=== PATIENT | female | born 2000 | race Caucasian/White ===

== ENCOUNTER 2022-07-05 18:03 | Emergency (ER) | payer OTHER, SELFPAY ==
--- NOTE | ~2022-07-05 | XR_ITS ---
EXAMINATION: XR lumbar spine 2-3V DATE: 07/05/2022 18:30 INDICATION: Low back pain radiating down both legs. TECHNIQUE: 3 views of lumbar spine were obtained. COMPARISON: None. FINDINGS: There is 3 degrees dextrocurvature of lumbar spine. Vertebral body heights and intervertebr al disc heights are normal. There is an osteophyte of superior endplate of L4. The facet joints are u nremarkable. IMPRESSION: 1. Mild lumbar spondylosis. Reviewed, dictated and finalized at location A. [employer] IMPRESSION: 1. Mild lumbar spondylosis.
--- NOTE | 2022-07-05 18:22 | ED.BACK ---
HPI - Back Pain/Injury General Chief Complaint: Back Pain/Injury Stated Complaint: lower back injury Time Seen by Provider: 07/05/22 18:16 Source: patient, RN notes reviewed and old records reviewed Mode of arrival: ambulatory Limitations: no limitations History of Present Illness HPI Narrative: 21 year old female presents to [facility] with complaints low back pain which does radiate down the posterior aspect both buttocks today to the posterior aspect of her upper thighs with some tingling voiced. Patient denies any difficulty with passing her urine or any difficulty with passing stools, denies any saddle paraesthesia. Patient reports that she has been having back problems since around 2015 with no known injury known. Patient states that she has been taking Tylenol and using her heating pad for her discomfort. MD elicited complaint: back pain Pertinent past history: other (back pain since 2016 increased symptoms past 3-4 months) Onset (ago): day(s) (increase pain past 3 days) Pain scale (0-10): 5 Treatments prior to arrival: other (Tylenol and heating pad) Related Data Home Medications Medication Instructions Recorded Confirmed dextroamphetamine-amphetamine 5 mg 5 mg PO DAILY 09/13/20 07/05/22 tablet (Adderall) dextroamphetamine-amphetamine ER 30 mg PO DAILY 09/13/20 07/05/22 30 mg 24hr capsule,extend release (Adderall XR) sertraline 100 mg tablet (Zoloft) 125 mg PO DAILY 11/08/21 07/05/22 Allergies Allergy/AdvReac Type Severity Reaction Status Date / Time No Known Allergies Allergy Verified 07/05/22 18:13 Review of Systems Review of Systems: CONSTITUTIONAL: Denies fever, chills, or sweats. CARDIOVASCULAR: Denies chest pain, palpitations, or edema. RESPIRATORY: Denies cough or dyspnea. GASTROINTESTINAL: Denies abdominal pain, nausea, vomiting, or diarrhea. GENITOURINARY: Denies dysuria or hematuria. SKIN: Denies rash or itching. MUSCULOSKELETAL: Reports today her lumbar back pain is across lower back with some radiation down buttocks to posterior upper thighs with some tingling.no other stated joint pain, Joint pain or myalgia. NEUROLOGIC: Denies headache, or weakness. All systems reviewed & are unremarkable except as noted in HPI and below PMFSH Past Medical History Medical History (Updated 07/05/22 @ 19:30 by Katy Jiménez NP) ADHD (attention deficit hyperactivity disorder) Anemia Anxiety Asthma History of frequent headaches Surgical History Surgical History History of appendectomy Family History Family History Mother Asthma Depression Father Hypertension Social History Social History Smoking status: Never smoker Tobacco type: e-cigarettes/vaping Alcohol intake: current Substance use: never Gender identity (if verbalized by the patient): Female Agree to blood products: Yes Comments At time of signature, agree with nursing past medical, surgical, social and family history. There is no relevant family history pertinent to the presenting complaint Exam Narrative: GENERAL: Well-appearing, well-nourished, and in no acute distress. HEAD: Normocephalic, atraumatic. EYES: PERRLA and EOMI. NECK: Supple. No lymphadenopathy. CHEST: Clear to auscultation. No respiratory distress. HEART: Regular rate and rhythm. Distal pulses palpable and equal, cap refill <3 seconds ABDOMEN: Soft, nontender, nondistended, normal active bowel sounds, no palpable or pulsatile masses. No CVA tenderness MUSCULOSKELETAL: Normal range of motion and strength in all extremities; 5/5 strength with hip flexion and extension, dorsiflexion and extension, knee flexion and extension, plantar flexion and extension. Normal sensation in dermatomal distributions with sensitivity to light touch and pain. No midline back tenderness
[2022-07-05 18:44] VITALS: BP 138/95; PULSE 83; RESP 16; TEMP 37.1; O2SAT 100
== END 2022-07-05 18:51 | disposition home or self-care (01) ==
PROVIDERS: Emergency Provider Registered Nurse
DX: M54.50 Low back pain, unspecified (principal); M79.652 Pain in left thigh; M79.651 Pain in right thigh; F90.9 Attention-deficit hyperactivity disorder, unspecified type; F41.9 Anxiety disorder, unspecified; J45.909 Unspecified asthma, uncomplicated
CPT/HCPCS: 72100; 99213; G0463

== ENCOUNTER 2023-08-05 18:28 | Emergency (ER) | payer OTHER, SELFPAY ==
[2023-08-05 18:37] VITALS: BP 145/95; PULSE 106; RESP 18; TEMP 36.9; O2SAT 100
[2023-08-05 19:42] VITALS: BP 112/77; PULSE 109; RESP 24; O2SAT 100
--- NOTE | 2023-08-05 21:02 | PC.NURSE ---
pt denies loss of bowel or bladder at this time.
[2023-08-06] MEDS: ACETAMINOPHEN 500 MG TABLET 1000 MG PO (00:06)
[2023-08-06] MEDS: KETOROLAC 15 MG/ML VIAL (*BKC) IV PUSH (00:07)
[2023-08-06] MEDS: methocarbamoL 750 MG TABLET 1500 MG PO (00:07)
--- NOTE | 2023-08-06 00:58 | ED.GENADULT ---
HPI - General Adult General Chief complaint: Back Pain/Injury Stated complaint: back pain Time Seen by Provider: 08/05/23 22:09 History of Present Illness HPI narrative: This is a 22-year-old female presenting with back pain. Patient says that she has midthoracic back pain that wraps around the right side of her chest and radiates into her chest. She says that is debilitating. She says she is unable to stand up straight. She says it is too painful for her walk. She notes the pain started when she was lifting a box about 1 week ago. Patient was seen at an outside urgent care and she was sent to the ER for further evaluation. Patient denies any Urinary retention, bowel incontinence or lower extremity weakness. No trauma fevers IV drug abuse or cancer Related Data Home Medications Medication Instructions Recorded Confirmed dextroamphetamine-amphetamine 5 mg 10 mg PO DAILY 05/07/23 tablet (Adderall) dextroamphetamine-amphetamine ER 25 mg PO DAILY 05/07/23 30 mg 24hr capsule,extend release (Adderall XR) sertraline 100 mg tablet (Zoloft) 200 mg PO DAILY 05/07/23 trazodone 50 mg tablet 50 mg PO QHS PRN 05/07/23 Allergies Allergy/AdvReac Type Severity Reaction Status Date / Time No Known Allergies Allergy Verified 05/07/23 14:36 PMFSH Past Medical History Medical History ADHD (attention deficit hyperactivity disorder) Anemia Anxiety Asthma History of frequent headaches Surgical History Surgical History History of appendectomy Family History Family History Mother Asthma Depression Father Hypertension Social History Social History Smoking status: Current every day smoker Tobacco type: e-cigarettes/vaping Alcohol intake: current Substance use: never Lack of Transportation: No Lack of Food: Never True Current Housing: I Have Housing Concerned About Future Housing: No Difficulty Paying Gas/Electric Bills: Decline to Answer Difficulty Paying for Meds: YES Currently Unemployed: No Education: High School Diploma/GED Difficulty w/ Childcare or Family Care: No Living arrangements: with roommate(s) Occupation/Education: student Gender identity (if verbalized by the patient): Female Agree to blood products: Yes Exam Narrative: APPEARANCE: No apparent distress. Head: atraumatic. EYES: EOMI, NOSE: Atraumatic NECK: Trachea midline RESPIRATORY: No increased rate of breathing, CTAB CARDIOVASCULAR: RRR, ABDOMINAL: Non-distended, soft nontender MUSCULOSKELETAl: tenderness to palpation over the right thoracic muscles NEURO: Alert. Moving 4/4 extremities SKIN:: Warm, dry. Normal color PSYCHIATRIC: Normal affect Course Vital Signs Vital signs: Vital Signs Temperature 98.4 F 08/05/23 18:37 Pulse Rate 106 H 08/05/23 18:37 Respiratory Rate 18 08/05/23 18:37 Blood Pressure 145/95 H 08/05/23 18:37 Pulse Oximetry 100 08/05/23 18:37 Oxygen Delivery Room Air 08/05/23 18:37 Temperature 98.4 F 08/05/23 18:37 Pulse Rate 85 08/06/23 01:44 Respiratory Rate 17 08/06/23 01:44 Blood Pressure 143/97 H 08/06/23 01:44 Pulse Oximetry 100 08/06/23 01:44 Oxygen Delivery Room Air 08/05/23 18:37 Medical Decision Making MDM Narrative Medical decision making narrative: -Course: 22-year-old female presenting with thoracic back pain wrapping around her body into her chest. Patient was treated conservatively with NSAIDs and muscle relaxers. On re-evaluation she says she is still in too much pain to stand or walk. She says she was sent here from the urgent care to get imaging. I discussed the dangers of radiation to a young female and the patient still requested imaging. CTA chest abdomen pelvis has been ordered.
[2023-08-06] MEDS: LIDOCAINE 5% PATCH 1 PATCH TRANSDERM (01:10)
[2023-08-06] MEDS: diazePAM INJ (*CRX) 10 MG/2 ML SYRINGE IM (01:10)
[2023-08-06] MEDS: SODIUM CHLORIDE 0.9% IV 2,000 ML 999 ML IV CONT (01:25)
[2023-08-06 01:36] LABS: Basophils Percent Auto 0.4 % (0.2-1.2); Eosinophils Absolute Auto 0.1 K/mm3 (0-0.3); Eosinophils Percent Auto 0.9 % (0-4.4); Hematocrit 35.8 % (37.0-47.0); Hemoglobin 10.8 g/dL (12.0-15.0); Immature Granulocyte Absolute 0.02 K/mm3 (0.00-0.031); Immature Granulocyte Percent A 0.2 % (0-0.5); Lymphocytes Absolute Auto 2.94 K/mm3 (0.9-3.2); Lymphocytes Percent Auto 31.6 % (18.3-44.2); Mean Corpuscular HGB Conc 30.2 g/dl (32-36); Mean Corpuscular Hemoglobin 23.5 pg (26-34); Monocytes Absolute Auto 0.6 K/mm3 (0.1-0.6); Monocytes Percent Auto 6.4 % (2.6-8.5); Neutrophils Absolute Auto 5.6 K/mm3 (1.3-6.7); Neutrophils Percent Auto 60.5 % (45.5-73.1); Platelet Count Result 202 k/mm3 (150-375); Red Blood Count 4.59 M/mm3 (4.2-5.4); Red Cell Distribution Width 17.1 % (11.5-14.5); White Blood Count 9.3 K/mm3 (4.5-10.0)
[2023-08-06 01:41] LABS: Appearance Urine Clear (Clear); Bacteria Urine Rare /hpf; Bilirubin Urine Negative (Negative); Blood Urine Negative (Negative); Color Urine Yellow (Yellow); Glucose Urine UA Negative (Negative); Ketones Urine Negative (Negative); Leukocyte Esterase Ur Trace LEU/UL (Negative); Nitrate Urine Negative (Negative); Non Pathogenic Casts 0-2; Protein Urine Negative (Negative); RBC Urine 0-2 /hpf (0-2); Squamous Epithelial Cell Urine Occasional /hpf (Few); Urobilinogen Urine 0.2 mg/dL (<2.0); WBC Urine 0-5 /hpf; pH Urine 5.5 (5.0-9.0)
[2023-08-06 01:44] VITALS: BP 143/97; PULSE 85; RESP 17; O2SAT 100
[2023-08-06 01:48] LABS: Alanine Aminotransferase 22 U/L (6-35); Albumin Level 4.3 g/dL (3.5-5.1); Alkaline Phosphatase 89 U/L (38-126); Anion Gap 8 mmol/L (8-16); Aspartate Amino Transferase 26 U/L (14-36); Bilirubin,Total 0.6 mg/dL (0.2-1.3); Blood Urea Nitrogen 9 mg/dL (7-17); Calcium 9.3 mg/dL (8.4-10.2); Carbon Dioxide 24 mmol/L (22-30); Chloride 104 mmol/L (98-107); Estimated CRCL calculation 136 ml/min; Estimated Glomerular Filt Rate > 60; Glucose 95 mg/dL (65-110); Potassium 3.5 mmol/L (3.4-5.0); Sodium 136 mmol/L (137-145)
[2023-08-06 01:52] LABS: Add Urine Microscopic? YES
[2023-08-06 01:59] LABS: NT Pro B Type Natriuretic Pept < 20 pg/mL (19.9-100); Troponin I < 0.012 ng/mL (0.000-0.034)
== END 2023-08-06 02:06 | disposition home or self-care (01) ==
PROVIDERS: Emergency Provider Emergency Medicine
DX: M62.830 Muscle spasm of back (principal); F17.290 Nicotine dependence, other tobacco product, uncomplicated; F90.9 Attention-deficit hyperactivity disorder, unspecified type; D64.9 Anemia, unspecified; F41.9 Anxiety disorder, unspecified; J45.909 Unspecified asthma, uncomplicated
CPT/HCPCS: 36415; 80053; 81001; 81025; 83880; 84484; 85025; 96361; 96372; 96374; 99284; A9270; J1885; J3360; J7030

== ENCOUNTER 2025-05-14 23:13 | Emergency (ER) | payer OTHER, SELFPAY ==
--- NOTE | ~2025-05-14 | XR_ITS ---
Examination: XR ankle LT min 3V, XR foot LT min 3V Clinical History: pain, injury Comparison: None Technique: 3 views left ankle, 3 views left foot Findings/impression: Left ankle: 1. No fracture or dislocation Left foot: 1. No fracture or dislocation. Reviewed, dictated and finalized at location R. [employer]
[2025-05-14 23:13] VITALS: BP 119/91; PULSE 95; RESP 18; TEMP 36.9; O2SAT 99
--- NOTE | 2025-05-14 23:23 | ED.LOWEXIN ---
HPI - Extremity Injury (Lower) General Chief Complaint: Extremity Injury, Lower Stated Complaint: L foot pain/injury Time Seen by Provider: 05/14/25 23:16 Source: patient Mode of arrival: EMS Limitations: no limitations History of Present Illness HPI Narrative: This is a 24-year-old female that presents to the emergency department after a left ankle injury. Reports she was running and twisted her ankle and fell. [place] a pop. She did not hit her head or lose consciousness. No other injuries or focal areas of pain Related Data Home Medications ?Medication ?Instructions ?Recorded ?Confirmed ?Last Taken ?Type dextroamphetamine-amphetamine 5 mg 10 mg PO DAILY 05/07/23 Unknown History tablet (Adderall) dextroamphetamine-amphetamine ER 25 mg PO DAILY 05/07/23 Unknown History 30 mg 24hr capsule,extend release (Adderall XR) sertraline 100 mg tablet (Zoloft) 200 mg PO DAILY 05/07/23 Unknown History trazodone 50 mg tablet 50 mg PO QHS PRN 05/07/23 Unknown History Allergies Allergy/AdvReac Type Severity Reaction Status Date / Time No Known Allergies Allergy Verified 05/07/23 14:36 Review of Systems Review of Systems: All systems reviewed & are unremarkable except as noted in HPI and below PMFSH Past Medical History Medical History ADHD (attention deficit hyperactivity disorder) Anemia Anxiety Asthma History of frequent headaches Surgical History Surgical History History of appendectomy Family History Family History Mother Asthma Depression Father Hypertension Social History Social History Tobacco type: e-cigarettes/vaping Alcohol intake: current Substance use: never Lack of Transportation: No Lack of Food: Never True Current Housing: I Have Housing Concerned About Future Housing: No Difficulty Paying Gas/Electric Bills: Decline to Answer Difficulty Paying for Meds: YES Currently Unemployed: No Education: High School Diploma/GED Difficulty w/ Childcare or Family Care: No Living arrangements: with roommate(s) Occupation/Education: student Gender identity (if verbalized by the patient): Female Agree to blood products: Yes Exam Narrative: GENERAL: Well-appearing, well-nourished, and in no acute distress. HEAD: Normocephalic, atraumatic. EYES: EOMI. EXTREMITIES: Normal range of motion. No edema or obvious deformity. Normal DP pulse. Normal sensation SKIN: Warm, dry, no rash. NEURO: No focal deficits. Alert and oriented x3. PSYCH: Normal mood and affect Course Vital Signs Vital signs: Vital Signs Temperature 98.4 F 05/14/25 23:13 Pulse Rate 95 05/14/25 23:13 Respiratory Rate 18 05/14/25 23:13 Blood Pressure 119/91 H 05/14/25 23:13 Pulse Oximetry 99 05/14/25 23:13 Temperature 98.4 F 05/14/25 23:13 Pulse Rate 95 05/14/25 23:13 Respiratory Rate 18 05/14/25 23:13 Blood Pressure 119/91 H 05/14/25 23:13 Pulse Oximetry 99 05/14/25 23:13 Procedures Orthopedic Splinting/Casting Injury #1: Splinting/Casting Date: 05/15/25 Splinting/Casting Time: 00:35 Side: left Lower Extremity Injury Location: ankle Lower Extremity Immobilizer: Jarad wrap Pre-Procedure Neuro Vascular Exam: normal Post-Procedure Neuro Vascular Exam: normal Other Orthopedic Equipment: crutches MDM - Extremity Injury (Lower) MDM Narrative Medical decision making narrative: Patient presents emergency department for left foot/ankle injury. She is neurovascularly intact. Left foot and ankle x-rays without acute osseous abnormalities. Patient instructed on further care of ankle sprain. She is to follow up with primary provider. She was given warnings to return to the ER Differential Diagnosis Differential diagnosis: Likely ankle sprain and strain, ankle fracture and other (Foot fracture) Imaging Data Radiologist's impression: Left ankle and foot x-rays: Unremarkable Critical Care Time Critical Care Time Critical Care Time: No Discharge Plan Discharge Clinical Impression: Ankle sprain and strain Patient Disposition: Home Condition: Stable Instructions: Ankle Sprain (ED) Additional Instructions: Return to the ER if you experience fever, redness and swelling of your extremity, numbness or any other symptoms that are concerning to you Wear JARAD wrap and use crutches. No weight on the affected leg until able to bear weight without pain. Ice and elevate extremity. Pain medication as needed and directed. Follow up with primary doctor for further care. Patient Language: Kiswahili Prescriptions: No Action dextroamphetamine-amphetamine [Adderall XR] 30 mg capsule,extended release 24hr 25 mg PO DAILY dextroamphetamine-amphetamine [Adderall] 5 mg tablet 10 mg PO DAILY sertraline [Zoloft] 100 mg tablet 200 mg PO DAILY trazodone 50 mg tablet 50 mg PO QHS PRN acetaminophen 500 mg tablet 1,000 mg PO TID PRN (Reason: brian) 7 Days Qty: 42 0RF ibuprofen 800 mg tablet 800 mg PO TID PRN (Reason: pain) 7 Days Qty: 21 0RF methocarbamol 750 mg tablet 1,500 mg PO TID Qty: 42 0RF lidocaine 5 % adhesive patch,medicated 1 patch topical DAILY Qty: 15 0RF Rx Instructions: leave on most painful area for up to 12 hrs Slynd 4 mg (28) tablet 1 tablet PO DAILY Qty: 84 3RF Follow-up/Referrals: PHYSICIAN,[employer] [facility] [Primary Care Provider, Internal Medicine] Cal Bella MD [Physician, Family Practice]
[2025-05-15 00:55] VITALS: BP 116/88; PULSE 88; RESP 20; TEMP 37.1; O2SAT 100
== END 2025-05-15 00:59 | disposition home or self-care (01) ==
PROVIDERS: Emergency Provider Physician Assistant
DX: S93.402A Sprain of unspecified ligament of left ankle, initial encounter (principal); S96.912A Strain of unspecified muscle and tendon at ankle and foot level, left foot, initial encounter; J45.909 Unspecified asthma, uncomplicated; F41.9 Anxiety disorder, unspecified; F90.9 Attention-deficit hyperactivity disorder, unspecified type; F17.290 Nicotine dependence, other tobacco product, uncomplicated; Z86.2 Personal history of diseases of the blood and blood-forming organs and certain disorders involving the immune mechanism; Z79.3 Long term (current) use of hormonal contraceptives; Z79.899 Other long term (current) drug therapy; X50.9XXA Other and unspecified overexertion or strenuous movements or postures, initial encounter; W18.39XA Other fall on same level, initial encounter; Y93.02 Activity, running
CPT/HCPCS: 73610; 73630; 99283